=== PATIENT | female | born 1965 | race Caucasian/White ===

== ENCOUNTER → 2017-05-02 | Outpatient (CLI) | payer BC ==
--- NOTE | 2017-05-02 16:15 | Diagnostic Imaging Report ---
Indication: Status post fall. Abrasion to nose Technique: Multiple images of the facial bones Comparison: None Findings: No radiopaque foreign body demonstrated. No worrisome sinus opacification. No gross facial fracture demonstrated. Impression: No gross facial fracture demonstrated Please refer to separate nasal bone report for nasal bone findings
--- NOTE | 2017-05-02 17:02 | Diagnostic Imaging Report ---
Indication: INJ abrasion to nose, status post fall Technique: Multiple views of the nasal bone Comparison: None Findings: There is a minimally displaced fracture of the tip of the nasal bone. The nasal septum is midline. The sinuses are clear Impression: Positive for nasal bone fracture Stat preliminary report phoned to Dr. Alvarado at the time of interpretation
== END | disposition home or self-care (01) ==
LOC: RAD 14:37
DX: S00.31XA Abrasion of nose, initial encounter (principal); S02.2XXA Fracture of nasal bones, initial encounter for closed fracture; X58.XXXA Exposure to other specified factors, initial encounter; Y93.9 Activity, unspecified; Y92.9 Unspecified place or not applicable
CPT/HCPCS: 70150; 70160

== ENCOUNTER 2018-10-23 11:31 | Outpatient (CLI) | payer BC ==
--- NOTE | 2018-10-23 16:35 | Diagnostic Imaging Report ---
Indication: Cough Technique: 2 views of the chest Comparison: None Findings: Lungs and pleural spaces are clear. The heart size is normal. The bones are unremarkable. Impression: Negative
== END 2018-10-23 13:31 | disposition home or self-care (01) ==
LOC: RAD 11:31
DX: R09.89 Other specified symptoms and signs involving the circulatory and respiratory systems (principal); R05 Cough
CPT/HCPCS: 71046